=== PATIENT | male | born 1955 | race African-American/Black ===

== ENCOUNTER 2017-09-21 14:09 | Observation (INO) | payer MEDICARE, OTHER ==
[2017-09-21 14:40] VITALS: BMI 27.1
[2017-09-21] MEDS ORDERED: SODIUM CHLORIDE 1,000 ML IV STA ×2 (14:46→15:52)
[2017-09-21 14:53] LABS: BASO % 0.4 % (0-2.0); EOS % 2.5 % (0-4.5); HEMATOCRIT 37.8 % (35.4-49); HEMOGLOBIN 13.1 GM/dL (11.7-16.9); LYMPH % 37.7 % (8-40); MCH 29.9 pg (25.7-33.7); MCHC 34.8 g/dl (32.0-35.9); MEAN CELL VOLUME 86.1 fl (80-96); MEAN PLT VOLUME 8.3 fl (7.5-11.1); MONO % 9.7 % (3.8-10.2); NEUT % 49.7 % (42.8-82.8); PLATELET COUNT 230 K/MM3 (134-434); RBC 4.39 M/mm3 (4.00-5.60); RDW 14.1 % (11.9-15.9); WHITE BLOOD COUNT 5.4 K/mm3 (4.0-10.0)
--- NOTE | 2017-09-21 15:00 | PDOC ---
History of Present Illness - General History Source: Patient Exam Limitations: No Limitations - History of Present Illness Initial Comments: 09/21/17 14:48 Patient is a 62M with history of HTN, back pain, and liver abscess (distant past , drained) here today complaining of syncope. The patient was sitting in a chair waiting for a doctor's appointment when states he felt sleepy and then collapsed. He denies confusion afterwards. Patient had a colonoscopy yesterday and reports eating less in an attempt to lose weight. Denies fevers, chills, nausea, vomiting. Denies chest pain, shortness of breath. Denies diarrhea, vomiting. Patient states that he feels fine now. Denies headache, head trauma, neck pain. Paramedics reports that patient was diaphoretic at the scene, was sure that patient was having STEMI. 12 lead reported normal in the field. <Agusto Batista - Last Filed: 09/21/17 16:23> <Jazmyne Liu - Last Filed: 09/21/17 17:29> - General Chief Complaint: Seizure Stated Complaint: SEIZURE/SYNCOPE Time Seen by Provider: 09/21/17 14:23 Past History - Past Medical History COPD: No GI Disorders: Yes (liver cyst) HTN: Yes Other medical history: chronic back pain L2l3 compression - Suicide/Smoking/Psychosocial Hx Smoking History: Never smoked Have you smoked in the past 12 months: No Information on smoking cessation initiated: No Hx Alcohol Use: No Drug/Substance Use Hx: No Substance Use Type: Alcohol <Agusto Batista - Last Filed: 09/21/17 16:23> <Jazmyne Liu - Last Filed: 09/21/17 17:29> - Past Medical History Allergies/Adverse Reactions: Allergies Allergy/AdvReac Type Severity Reaction Status Date / Time No Known Allergies Allergy Verified 09/21/17 14:40 Home Medications: Ambulatory Orders Amlodipine Besylate 10 mg PO DAILY 09/21/17 Duloxetine HCl [Cymbalta -] 30 mg PO BID 09/21/17 Enalapril Maleate [Vasotec -] 10 mg PO DAILY 09/21/17 Gabapentin [Neurontin] 600 mg PO BID 09/21/17 Tramadol HCl [Tramadol HCl ER] 200 mg PO DAILY 09/21/17 Tramadol HCl [Ultram] 50 mg PO BID 09/21/17 Triamterene/Hydrochlorothiazid [Triamterene-Hctz 37.5-25 mg Cp] 1 each PO DAILY 09/21/17 Zolpidem Tartrate 10 mg PO HS 09/21/17 Review of Systems - Review of Systems Comments:: 09/21/17 15:00 GENERAL/CONSTITUTIONAL: No fever or chills. No weakness. HEAD, EYES, EARS, NOSE AND THROAT: No change in vision. No ear pain or discharge. No sore throat. CARDIOVASCULAR: No chest pain or shortness of breath RESPIRATORY: No cough, wheezing, or hemoptysis. GASTROINTESTINAL: No nausea, vomiting, diarrhea or constipation. GENITOURINARY: No dysuria, frequency, or change in urination. MUSCULOSKELETAL: No joint or muscle swelling or pain. No neck or back pain. SKIN: No rash NEUROLOGIC: No headache, +loss of consciousness, ENDOCRINE: No increased thirst. No abnormal weight change HEMATOLOGIC/LYMPHATIC: No anemia, easy bleeding, or history of blood clots. ALLERGIC/IMMUNOLOGIC: No hives or skin allergy. <Agusto Batista - Last Filed: 09/21/17 16:23> *Physical Exam - Vital Signs Last Vital Signs Temp Pulse Resp BP Pulse Ox 97.9 F 70 16 81/62 100 09/21/17 14:10 09/21/17 14:10 09/21/17 14:10 09/21/17 14:10 09/21/17 14:10 - Physical Exam Comments: 09/21/17 15:00 GENERAL: Awake, alert, and fully oriented, in no acute distress HEAD: No signs of trauma, normocephalic, atraumatic EYES: PERRLA, EOMI, sclera anicteric, conjunctiva clear ENT: Auricles normal inspection, hearing grossly normal, nares patent, oropharynx clear without exudates. Moist mucosa NECK: Normal ROM, supple, no lymphadenopathy, JVD, or masses LUNGS: No distress, speaks full sentences, clear to auscultation bilaterally HEART: Regular rate and rhythm, normal S1 and S2, no murmurs, rubs or gallops, peripheral pulses normal and equal bilaterally. ABDOMEN: Soft, nontender, normoactive bowel sounds. No guarding, no rebound. No masses EXTREMITIES: Normal inspection, Normal range of motion, no edema. No clubbing or cyanosis. NEUROLOGICAL: Cranial nerves II through XII grossly intact. Normal speech, no focal sensorimotor deficits SKIN: Warm, Dry, normal turgor, no rashes or lesions noted. <Agusto Batista - Last Filed: 09/21/17 16:23> - Vital Signs Last Vital Signs Temp Pulse Resp BP Pulse Ox 97.9 F 83 20 92/43 97 09/21/17 14:10 09/21/17 16:31 09/21/17 16:31 09/21/17 16:31 09/21/17 16:31 <LiuJazmyne Imani - Last Filed: 09/21/17 17:29> ED Treatment Course - LABORATORY CBC & Chemistry Diagram: 09/21/17 14:38 09/21/17 14:38 - RADIOLOGY Radiology Studies Ordered: Category Date Time Status CHEST X-RAY PORTABLE* [RAD] Stat Radiology 09/21/17 14:33 Ordered <Agusto Batista - Last Filed: 09/21/17 16:23> - LABORATORY CBC & Chemistry Diagram: 09/21/17 14:38 09/21/17 14:38 - ADDITIONAL ORDERS Additional order review: Laboratory Results 09/21/17 09/21/17 14:38 14:38 PT with INR 11.90 INR 1.05 Sodium 136 Potassium 3.5 Chloride 102 Carbon Dioxide 24 Anion Gap 10 BUN 12 Creatinine 1.8 H Creat Clearance w eGFR 38.18 Random Glucose 92 Calcium 8.6 Magnesium 2.3 Total Bilirubin 0.2 AST 39 H ALT 26 Alkaline Phosphatase 92 Creatine Kinase 1237 H Creatine Kinase Index 0.8 CK-MB (CK-2) 10.02 H Troponin I < 0.02 Total Protein 7.0 Albumin 3.8 09/21/17 14:38 RBC 4.39 MCV 86.1 MCHC 34.8 RDW 14.1 MPV 8.3 Neutrophils % 49.7 Lymphocytes % 37.7 Monocytes % 9.7 Eosinophils % 2.5 Basophils % 0.4 - Medications Given in the ED: ED Medications Discontinued Medications Generic Name Dose Route Start Last Admin Trade Name Freq PRN Reason Stop Dose Admin Sodium Chloride 1,000 mls @ 1,000 mls/hr 09/21/17 14:46 09/21/17 14:49 Normal Saline - IV 09/21/17 15:45 1,000 mls/hr ASDIR STA Administration Sodium Chloride 1,000 mls @ 1,000 mls/hr 09/21/17 15:52 09/21/17 16:16 Normal Saline - IV 09/21/17 16:51 1,000 mls/hr ASDIR STA Administration <AlexaHoneyJazmyneabhijit Chappellmagdaleno - Last Filed: 09/21/17 17:29> Medical Decision Making - Medical Decision Making 09/21/17 15:00 Patient is a 62M with history of HTN, back pain, recent colonoscopy, distant liver abscess here today with syncope. Vital signs notable for BP of 80s/60s. Patient appears otherwise well. History for syncope is concerning, ddx includes , but is not limited to: electrolyte abnormality, arrhythmia, ACS, dehydration. EKG shows sinus rhythm with 1st degree av block (ID = 212). No st elevations/ depressions. No significant t wave inversions. Normal axis. Normal QTc/QRS intervals. CBC, CMP, Mg, Trop, CXR, PT/INR ordered. 09/21/17 15:06 CXR shows no acute cardiopulmonary process. 09/21/17 15:51 CBC normal. Trop undetectable. PT/INR normal. CK elevated to 1300. Second liter of fluids ordered. UA ordered for possible rhabdo. Will admit to tele obs. <Agusto Batista - Last Filed: 09/21/17 16:23> *DC/Admit/Observation/Transfer - Discharge Dispostion Decision to Admit order: Yes <Agusto Batista - Last Filed: 09/21/17 16:23> - Discharge Dispostion Decision to Admit order: Yes <Jazmyne Liu - Last Filed: 09/21/17 17:29> Diagnosis at time of Disposition: Dehydration Syncope Qualifiers: Syncope type: unspecified Qualified Code(s): R55 - Syncope and collapse Rhabdomyolysis Qualifiers: Rhabdomyolysis type: non-traumatic Qualified Code(s): M62.82 - Rhabdomyolysis - Discharge Dispostion Condition at time of disposition: Stable - Referrals Referrals: Brunilda Ojeda MD [Primary Care Provider] - - Patient Instructions - Post Discharge Activity
[2017-09-21 15:01] LABS: INR 1.05 (0.83-1.09); PROTHROMBIN TIME (PATIENT) 11.9 SEC (9.7-13.0)
[2017-09-21 15:16] LABS: ALBUMIN 3.8 g/dl (3.4-5.0); ANION GAP 10 (8-16); BILIRUBIN,TOTAL 0.2 mg/dL (0.2-1.0); BLOOD UREA NITROGEN 12 mg/dL (7-18); CALCIUM 8.6 mg/dL (8.5-10.1); CHLORIDE 102 mmol/L (98-107); CO2 24 mmol/L (21-32); CREATININE 1.8 mg/dL (0.7-1.3); GLUCOSE,RANDOM 92 mg/dL (74-106); MAGNESIUM 2.3 mg/dL (1.8-2.4); POTASSIUM 3.5 mmol/L (3.5-5.1); SGOT/AST 39 U/L (15-37); SGPT/ALT 26 U/L (12-78); SODIUM 136 mmol/L (136-145)
[2017-09-21 15:28] LABS: ALK PHOS 92 U/L (45-117)
--- NOTE | 2017-09-21 15:49 | EKG ---
Test Reason : Blood Pressure : / mmHG Vent. Rate : 073 BPM Atrial Rate : 073 BPM P-R Int : 212 ms QRS Dur : 110 ms QT Int : 400 ms P-R-T Axes : 056 -05 021 degrees QTc Int : 440 ms SINUS RHYTHM WITH 1ST DEGREE A-V BLOCK LOW VOLTAGE QRS SEPTAL INFARCT , AGE UNDETERMINED ABNORMAL ECG NO PREVIOUS ECGS AVAILABLE Confirmed by EDGAR BOWERS MD ([id number]) on 09/21/2017 3:49:15 PM Referred By: Confirmed By:EDGAR BOWERS MD
--- NOTE | 2017-09-21 16:26 | HP ---
CHIEF COMPLAINT: Syncope PCP: Dr. Brunilda Ojeda HISTORY OF PRESENT ILLNESS: This is a 62 year old male with PMHx of HTN, chronic back pain with previous surgeries and +screw placement, who presented to the ED with syncope. The patient reports he had a colonoscopy yesterday with bowel prep. He reported waking up in good health today and went for a walk this morning. He states he went to his neurologist office today (Dr. Márquez) where he was sitting in a chair and began to feel tired and he lost consciousness. The patient reports he was unconscious for 15 minutes. Awaiting call back from Dr. Márquez to confirm. Per chart review, the paramedics reported the patient was diaphoretic when they got to the scene. The patient denies any chest pain, palpitations, headache, urinary symptoms, nausea, vomiting, abdominal pain. ER course was notable for: (1) Temp 97.9, pulse 70, BP 81/62, resp 16, O2 100% on RA (2) Cr 1.8, CPK 1237, Trop <0.02 (3) Chest x-r5ay with no acute chest pathology (4) EKG with 1st degree av block Recent Travel: denies PAST MEDICAL HISTORY: as above PAST SURGICAL HISTORY: as above Social History: Smokin-4 cigarettes per day Alcohol: "occasionally" Drugs: denies Family History: Allergies No Known Allergies Allergy (Verified 09/21/17 14:40) HOME MEDICATIONS: Home Medications Medication Instructions Recorded Amlodipine Besylate 10 mg PO DAILY 09/21/17 Duloxetine HCl [Cymbalta -] 30 mg PO BID 09/21/17 Enalapril Maleate [Vasotec -] 10 mg PO DAILY 09/21/17 Gabapentin [Neurontin] 600 mg PO BID 09/21/17 Tramadol HCl [Tramadol HCl ER] 200 mg PO DAILY 09/21/17 Tramadol HCl [Ultram] 50 mg PO BID 09/21/17 Triamterene/Hydrochlorothiazid 1 each PO DAILY 09/21/17 [Triamterene-Hctz 37.5-25 mg Cp] Zolpidem Tartrate 10 mg PO HS 09/21/17 REVIEW OF SYSTEMS CONSTITUTIONAL: Absent: fever, chills, diaphoresis, generalized weakness, malaise, loss of appetite, weight change HEENT: Absent: rhinorrhea, nasal congestion, throat pain, throat swelling, difficulty swallowing, mouth swelling, ear pain, eye pain, visual changes CARDIOVASCULAR: Syncopal episode today while waiting to see his neurologist. Patient reports he was unconscious for 15 minutes. Absent: chest pain, palpitations, irregular heart rate, lightheadedness, peripheral edema RESPIRATORY: Absent: cough, shortness of breath, dyspnea with exertion, orthopnea, wheezing, stridor, hemoptysis GASTROINTESTINAL: Absent: abdominal pain, abdominal distension, nausea, vomiting, diarrhea, constipation, melena, hematochezia GENITOURINARY: Absent: dysuria, frequency, urgency, hesitancy, hematuria, flank pain, genital pain MUSCULOSKELETAL: Absent: myalgia, arthralgia, joint swelling, back pain, neck pain SKIN: Absent: rash, itching, pallor HEMATOLOGIC/IMMUNOLOGIC: Absent: easy bleeding, easy bruising, lymphadenopathy, frequent infections ENDOCRINE: Absent: unexplained weight gain, unexplained weight loss, heat intolerance, cold intolerance NEUROLOGIC: Absent: headache, focal weakness or paresthesias, unsteady gait, seizure, mental status changes, bladder or bowel incontinence PSYCHIATRIC: Absent: anxiety, depression, suicidal or homicidal ideation, hallucinations. PHYSICAL EXAMINATION Vital Signs - 24 hr 09/21/17 09/21/17 14:10 15:13 Temperature 97.9 F Pulse Rate 70 Respiratory 16 Rate Blood Pressure 81/62 Blood Pressure 90/64 [Right Arm] O2 Sat by Pulse 100 Oximetry (%) GENERAL: Awake, alert, and fully oriented, in no acute distress. HEAD: Normal with no signs of trauma. EYES: Pupils equal, round and reactive to light, extraocular movements intact, sclera anicteric, conjunctiva clear. No lid lag. NECK: Normal range of motion. LUNGS: Breath sounds equal, clear to auscultation bilaterally. No wheezes, and no crackles. No accessory muscle use. HEART: Regular rate and rhythm, normal S1 and S2 ABDOMEN: Soft, nontender, not distended, normoactive bowel sounds, no guarding, no rebound MUSCULOSKELETAL: Normal range of motion at all joints. No bony deformities or tenderness. No CVA tenderness. UPPER EXTREMITIES: 2+ pulses, warm, well-perfused. No cyanosis. No clubbing. No peripheral edema. LOWER EXTREMITIES: 2+ pulses, warm, well-perfused. No calf tenderness. No peripheral edema. NEUROLOGICAL: Cranial nerves II-XII intact. Normal speech. Gait not observed PSYCHIATRIC: Cooperative. Good eye contact. Appropriate mood and affect. SKIN: Warm, dry, normal turgor, no rashes or lesions noted, normal capillary refill. Laboratory Results - last 24 hr 09/21/17 09/21/17 09/21/17 14:38 14:38 14:38 WBC 5.4 RBC 4.39 Hgb 13.1 Hct 37.8 MCV 86.1 MCH 29.9 MCHC 34.8 RDW 14.1 Plt Count 230 MPV 8.3 Absolute Neuts (auto) 2.7 Neutrophils % 49.7 Lymphocytes % 37.7 Monocytes % 9.7 Eosinophils % 2.5 Basophils % 0.4 Nucleated RBC % 0 PT with INR 11.90 INR 1.05 Sodium 136 Potassium 3.5 Chloride 102 Carbon Dioxide 24 Anion Gap 10 BUN 12 Creatinine 1.8 H Creat Clearance w eGFR 38.18 Random Glucose 92 Calcium 8.6 Magnesium 2.3 Total Bilirubin 0.2 AST 39 H ALT 26 Alkaline Phosphatase 92 Creatine Kinase 1237 H Creatine Kinase Index 0.8 CK-MB (CK-2) 10.02 H Troponin I < 0.02 Total Protein 7.0 Albumin 3.8 Assessment: This is a 62 year old male with PMHx of HTN, chronic back pain with previous surgeries and +screw placement, who presented to the ED with syncope. Plan: 1) Syncope - Likely 2/2 dehydration from colonoscopy bowel prep yesterday - Continue IV fluids - Called and discussed with Dr. Neri who agrees with above. Patient had the following tests performed in the office: - ECHO 07/04/17: Normal function, trace TR, trace MR - Treadmill stress 07/07/17: No myocardial induced ischemia - Carotid doppler 08/03/17: Mild intimal thickening bilaterally - Trend troponins to r/o ACS - F/u orthostatics - EKG with 1st degree av block, f/u cardiology input - F/u cards consult - F/u neuro consult: does not appear to be a seizure, no post ictal state, no tonic clonic activity during syncopal episode 2) Rhabdomyolysis - Continue IV fluids - Trend CPK 3) RUPERTO - Patient denies a history of kidney disease - RUPERTO likely prerenal 2/2 dehydration from bowel prep - F/u urine electrolytes 4) HTN - Now with hypotension - Hold all antihypertensives 5) F/E/N: - Regular diet - Monitor electrolytes 6) Prophylaxis: - OOB ambulating 7) Dispo - Once condition improves CODE STATUS: FULL CODE Visit type - Emergency Visit Emergency Visit: Yes ED Registration Date: 09/21/17 Care time: The patient presented to the Emergency Department on the above date and was hospitalized for further evaluation of their emergent condition. - New Patient This patient is new to me today: Yes Date on this admission: 09/21/17 - Critical Care Critical Care patient: No Hospitalist Screening - Colonoscopy Questionnaire Colonoscopy Questionnaire: Colonoscopy Questionnaire - Patient: 50 - 75 years old and never had a screening colonoscopy: No (Had colonoscopy yesterday) History of colon or rectal polyps, or CA: No History of IBD, Crohn's disease or UC: No History of abdominal radiation therapy as a child: No - Relative: 1 with colon or rectal CA, or polyps at age 60 or younger: Unknown Colon or rectal CA diagnosed at age 45 or younger: Unknown Multiple relatives with colon or rectal CA: Unknown - Outcome: Screening Result: Negative Screen
[2017-09-21] MEDS ORDERED: SODIUM CHLORIDE 1,000 ML IV SCH (16:30)
--- NOTE | 2017-09-21 17:03 | PDOC ---
Attending Attestation - Resident Resident Name: Agusto Batista - ED Attending Attestation I have performed the following: I have examined & evaluated the patient, The case was reviewed & discussed with the resident, I agree w/resident's findings & plan - HPI HPI: 09/21/17 17:05 Izaiah 62M with HTN and back pain, liver abscess s/p drainage previously presenting with witnessed syncope at neurologist office today, lasting 7 minutes. no confusion. no recent illness. +colonoscopy yesterday, had bowel prep ; poor hydration and increased exertion activity. - Physicial Exam PE: 09/21/17 17:05 NAD, well appearing, MMM, nl conjunctiva, anicteric; neck supple. lungs clear, RRR, abdomen soft nontender. MAHARAJ x4, no focal neuro deficits. No peripheral edema. normal color for ethnicity, WWP. - Medical Decision Making 09/21/17 17:01 Izaiah 62M with HTN and back pain, liver abscess s/p drainage previously presenting with witnessed syncope at neurologist office today, lasting 7 minutes. no confusion. no recent illness. +colonoscopy yesterday, had bowel prep ; poor hydration and increased exertion activity. dDx. syncope, seizure, dehydration, rhabdomyolysis, metabolic/electrolyte derangements. arrhythmia, anemia. vital signs remarkable for initial hypotension. labs and lytes reviewed - increased Cr 1.8, CK elevated, considering rhabdomyolysis and dehydration c/w volume loss from recent bowel prep. EKG sinus rhythm with flattening/nonspecific T wave abnormalities; no elevations or significant interval abnormalities. given IVF, will admit for syncope workup with tele observation. 09/21/17 17:04 09/21/17 17:05 Heart Score/ECG Review - ECG Impressions Comment:: 09/21/17 17:06 EKG sinus rhythm with flattening/nonspecific T wave abnormalities; no elevations or significant interval abnormalities.
[2017-09-21] MEDS ORDERED: DULoxetine HCL 30 MG CAPSULE.DR (FP) PO SCH (22:00)
[2017-09-22] MEDS: GABAPENTIN 300 MG CAPSULE (FP) PO SCH ×2 (01:07→10:12)
[2017-09-22 06:37] LABS: BASO % 0.5 % (0-2.0); EOS % 3.8 % (0-4.5); HEMATOCRIT 33.6 % (35.4-49); HEMOGLOBIN 11.8 GM/dL (11.7-16.9); LYMPH % 44.4 % (8-40); MCH 30.1 pg (25.7-33.7); MCHC 35.1 g/dl (32.0-35.9); MEAN CELL VOLUME 85.7 fl (80-96); MEAN PLT VOLUME 8.5 fl (7.5-11.1); NEUT % 41.3 % (42.8-82.8); PLATELET COUNT 182 K/MM3 (134-434); RBC 3.93 M/mm3 (4.00-5.60); RDW 14.2 % (11.9-15.9); WHITE BLOOD COUNT 4.5 K/mm3 (4.0-10.0)
[2017-09-22 07:03] LABS: ALBUMIN 3.3 g/dl (3.4-5.0); ANION GAP 9 (8-16); BLOOD UREA NITROGEN 10 mg/dL (7-18); CALCIUM 8.6 mg/dL (8.5-10.1); CHLORIDE 104 mmol/L (98-107); CO2 26 mmol/L (21-32); CREATININE 0.8 mg/dL (0.7-1.3); GLUCOSE,RANDOM 83 mg/dL (74-106); POTASSIUM 3.8 mmol/L (3.5-5.1); SGOT/AST 33 U/L (15-37); SGPT/ALT 23 U/L (12-78); SODIUM 139 mmol/L (136-145)
[2017-09-22 07:16] LABS: ALK PHOS 78 U/L (45-117); BILIRUBIN,TOTAL 0.4 mg/dL (0.2-1.0)
[2017-09-22 08:37] VITALS: BP 108/68; PULSE 68; TEMP 98.2
[2017-09-22] MEDS ORDERED: TRAMADOL HCL 200 MG PO SCH (10:00)
[2017-09-22] MEDS ORDERED: PT OWN MED DRAWER 7, Y5N ONE (10:11)
--- NOTE | 2017-09-22 11:35 | DS ---
Physical Examination Vital Signs: Vital Signs Temperature 98.2 F 09/22/17 08:30 Pulse Rate 68 09/22/17 08:30 Respiratory Rate 16 09/22/17 08:30 Blood Pressure 108/68 09/22/17 08:30 O2 Sat by Pulse Oximetry (%) 98 09/22/17 08:30 Labs: CBC, BMP 09/22/17 06:00 09/22/17 06:00 Discharge Summary Reason For Visit: SYNCOPE Current Active Problems Dehydration (Acute) Rhabdomyolysis (Acute) Syncope (Acute) Condition: Stable - Instructions Diet, Activity, Other Instructions: You are leaving against medical advice. Please return to the ED with new, persistent, or worsening symptoms. Please follow-up with providers as indicated. Please stop taking your Norvasc, Enalapril, Triamterene/Hctz until you are reevaluated by your primary care provider. Continue to monitor your blood pressure closely at home. 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 ) Brunilda Ojeda MD [Primary Care Provider] - (Please follow-up with your primary care provider today to have your creatininephosphokinase (CPK) level checked. Please continue to hydrate yourself well, drink plenty of water, at least 8 glasses per day. Stay out of the direct sunlight and continue to stay indoors with airconditioning. ) Kadeem Márquez MD [Staff Physician] - (Please follow-up with neurology within 1- 2 days for further evaluation of your syncope. ) Disposition: AGAINST MEDICAL ADVICE - Home Medications Comprehensive Discharge Medication List: Ambulatory Orders Duloxetine HCl [Cymbalta -] 30 mg PO BID 09/21/17 Gabapentin [Neurontin] 600 mg PO BID 09/21/17 Tramadol HCl [Tramadol HCl ER] 200 mg PO DAILY 09/21/17 Triamterene/Hydrochlorothiazid [Triamterene-Hctz 37.5-25 mg Cp] 1 each PO DAILY 09/21/17 Zolpidem Tartrate 10 mg PO HS 09/21/17
[2017-09-22 12:05] LABS: URINE APPEARANCE CLEAR; URINE BILIRUBIN NEGATIVE (<2.0 mg/dL); URINE COLOR STRAW; URINE GLUCOSE (UA) NEGATIVE (NEGATIVE); URINE KETONE NEGATIVE (NEGATIVE); URINE LEUK ESTERASE NEGATIVE (NEGATIVE); URINE NITRITE NEGATIVE (NEGATIVE); URINE PROTEIN NEGATIVE (NEGATIVE); URINE UROBILINOGEN NEGATIVE mg/dL (0.2-1.0)
== END 2017-09-22 13:00 | disposition left against medical advice (07) ==
LOC: JER 14:09 → JERBED 16:24
PROVIDERS: ADMIT Internal Medicine; ATTEND Registered Nurse
PROC: 3E0337Z Introduction of Electrolytic and Water Balance Substance into Peripheral Vein, Percutaneous Approach (ICD-10-PCS; principal; 2017-09-21)
DX: E86.0 Dehydration (principal); R55 Syncope and collapse; M62.82 Rhabdomyolysis; N17.9 Acute kidney failure, unspecified; I10 Essential (primary) hypertension; M54.5 Low back pain; G89.29 Other chronic pain
CPT/HCPCS: 36415; 71045-TC-FY; 80053; 81003; 82436; 82550; 82553; 82570; 83735; 84133; 84300; 84484; 85025; 85610; 93005; 93010; 96360; 96361; 99285-25; G0378; J7030